=== PATIENT | female | born 1990 | race African-American/Black ===

== ENCOUNTER 2021-12-11 18:54 | Emergency (ER) | payer MEDICAID ==
[~2021-12-11] VITALS: Ht 165.1 cm; Wt 82.6 kg
[2021-12-11 19:00] VITALS: BP 145/82
--- NOTE | 2021-12-11 19:00 | NUR ---
PT BIBSELF C/O LACERATION TO L INDEX FINGER. PT CUT FINGER WHILE CHOPPING FOOD.
--- NOTE | 2021-12-11 19:12 | NUR ---
EMT AT BEDSIDE FOR WOUND CARE
[2021-12-11] MEDS ORDERED: TDAP [DIPH/PERTUSSIS/TET] 0.5 ML VIAL IM ONE ×2 (19:57→20:00)
--- NOTE | 2021-12-11 20:16 | NUR ---
Patient discharged to home in stable condition. RX Written and verbal after care instructions given. Patient verbalizes understanding of instruction. PT ambulatory with a steady gait. NO ACTIVE BLEEDING AT THIS TIME.
== END 2021-12-11 20:18 | disposition home or self-care (01) ==
LOC: ER 18:56
DX: S61.311A Laceration without foreign body of left index finger with damage to nail, initial encounter (principal); W26.0XXA Contact with knife, initial encounter; Y93.G3 Activity, cooking and baking; Y92.89 Other specified places as the place of occurrence of the external cause; Y99.8 Other external cause status
CPT/HCPCS: 90471; 90715; 99283; A6403